=== PATIENT | male | born 1960 ===

== ENCOUNTER 2020-06-18 13:40 | Inpatient (IN) | payer OTHER ==
[~2020-06-18] VITALS: Ht 165.1 cm; Wt 70.3 kg
[~2020-06-18 13:40] MED LIST: BREO ELLIPTA 21 EACH; CLARITIN5 MG PO; PROAIR HFA8.5 GM IH; PULMICORT1 MG/2 ML IH; TAMS0.4C PO; ZESTRIL20 MG PO
[2020-06-18] MEDS ORDERED: INTESTINEX680 M1 (14:07)
== END 2020-06-29 10:40 | disposition home or self-care (01) | DRG 372 ==
LOC: ER 13:40 → MEDI 19:25
PROVIDERS: ADMIT Internal Medicine; ATTEND Internal Medicine
PROC: BW21YZZ Computerized Tomography (CT Scan) of Abdomen and Pelvis using Other Contrast (ICD-10-PCS; principal; 2020-06-18)
DX: A04.72 Enterocolitis due to Clostridium difficile, not specified as recurrent (principal); K56.690 Other partial intestinal obstruction; T81.49XA Infection following a procedure, other surgical site, initial encounter; Z98.0 Intestinal bypass and anastomosis status; I10 Essential (primary) hypertension; G43.809 Other migraine, not intractable, without status migrainosus; K62.89 Other specified diseases of anus and rectum; Z86.73 Personal history of transient ischemic attack (TIA), and cerebral infarction without residual deficits